=== PATIENT | female | born 1965 | race Caucasian/White ===

== ENCOUNTER 2022-02-25 13:55 | Outpatient (CLI) | payer BC ==
[2022-02-25 22:17] LABS: Albumin (w/Testosterone Panel) 4.7 g/dL
[2022-02-25 22:42] LABS: Sex Hormone Binding Globulin 59.8 nmol/L (26-188); Testosterone, Free 4.5 pg/mL (50-110); Testosterone, Total 38.1 ng/dL (12-36)
[2022-02-26 11:46] LABS: Progesterone 5.9 ng/mL
== END 2022-02-25 13:56 | disposition home or self-care (01) ==
LOC: NAV LAB 13:55
PROVIDERS: ATTEND Obstetrics & Gynecology
DX: Z78.0 Asymptomatic menopausal state (principal); Z79.890 Hormone replacement therapy
CPT/HCPCS: 36415; 82627; 82670; 84144; 84270; 84403